=== PATIENT | male | born 1975 | race Caucasian/White ===

== ENCOUNTER 2019-11-20 02:34 | Emergency (ER) | payer MEDICAID ==
[~2019-11-20] VITALS: Ht 195.6 cm; Wt 117.9 kg
--- NOTE | 2019-11-20 02:55 | NUR ---
Patient ambulated to Room in steady gait. AO x 4. Complains of skin rashes on bilateral lower legs extending to ankles. Denies any pain or discomfort. Site noted with rashes that are scaly, surrounded by redness on the borders. Warm to touch. Not bleeding actively, no pus or foul smelling drainage noted. Respirations even and unlabored, not on any cardio-respiratory distress. No GI/ symptoms verbalized. VS stable. Safety precautions in place.
[2019-11-20 03:30] LABS: CREATININE 1.3 mg/dL (0.6-1.3); POTASSIUM 3.6 mmol/L (3.5-5.1)
[2019-11-20 03:56] VITALS: BP 139/94
== END 2019-11-20 03:55 | disposition home or self-care (01) ==
LOC: ER 02:38
DX: R21 Rash and other nonspecific skin eruption (principal); Z59.0 Homelessness; F17.200 Nicotine dependence, unspecified, uncomplicated; R03.0 Elevated blood-pressure reading, without diagnosis of hypertension
CPT/HCPCS: 36415; A4663

== ENCOUNTER 2021-01-06 23:11 | Emergency (ER) | payer MEDICAID, OTHER ==
[~2021-01-06] VITALS: Ht 195.6 cm; Wt 122.5 kg
[2021-01-07] MEDS ORDERED: KETOROLAC TROMETHAMINE 60 MG INJ IM ONE (01:06)
[2021-01-07] MEDS ORDERED: methylPREDNISolone SOD SUCC 125 MG/2 ML VIAL ONE (01:06)
[2021-01-07] MEDS: KETOROLAC TROMETHAMINE 60 MG INJ IM ONE (01:10)
[2021-01-07] MEDS: methylPREDNISolone SOD SUCC 125 MG/2 ML VIAL IV ONE (01:10)
[2021-01-07] MEDS ORDERED: CYCL10TA9 PO (02:03)
[2021-01-07] MEDS ORDERED: NAPR-1164 PO (02:03)
[2021-01-07 02:16] VITALS: BP 138/90
== END 2021-01-07 02:17 | disposition home or self-care (01) ==
LOC: ER 23:14
DX: M54.42 Lumbago with sciatica, left side (principal); Z59.0 Homelessness; F17.200 Nicotine dependence, unspecified, uncomplicated; Z88.0 Allergy status to penicillin; Z91.041 Radiographic dye allergy status; Z90.49 Acquired absence of other specified parts of digestive tract
CPT/HCPCS: 96372; 96374; 99284; J1885; J2930; A4663

== ENCOUNTER 2021-03-20 02:08 | Emergency (ER) | payer OTHER ==
[~2021-03-20] VITALS: Ht 193 cm; Wt 122.5 kg
[~2021-03-20 02:08] MED LIST: CYCL10TA9 PO; NAPR-1164 PO
--- NOTE | 2021-03-20 02:22 | NUR ---
Pt ambulated to ER with c/o right hand laceration 30 mins [employer]. A/O x4, no SOB or labored breathing, afebrile. Denies pain. Pt able to move right arm and all fingers on right hand.
--- NOTE | 2021-03-20 02:25 | NUR ---
Nilo Bueno at bedside, MSE in progress.
[2021-03-20] MEDS ORDERED: TDAP DIPH,PERTUSS,TET VAC/PF 0.5 ML DISP.SYRIN IM ONE ×2 (02:46→03:00)
--- NOTE | 2021-03-20 02:50 | NUR ---
Dr. Moselye at bedside providing stitches on right index finger.
[2021-03-20] MEDS ORDERED: CEPH500T PO (02:59)
[2021-03-20] MEDS ORDERED: CEphaleXIN 500 MG CAPSULE PO ONE (03:00)
--- NOTE | 2021-03-20 03:08 | NUR ---
Patient given written and verbal discharge instructions. A/O X4, denies any pain discomfort. Patient verbalizes understanding of instructions. Refuses offer of group home placement. Patient given list of available shelters in surrounding area. Right hand wound covered in clean dry dressing. Patient is ambulatory with steady gait.
[2021-03-20] MEDS ORDERED: CEphaleXIN 500 MG CAPSULE ONE (03:09)
[2021-03-20 03:12] VITALS: BP 136/82
== END 2021-03-20 03:08 | disposition home or self-care (01) ==
LOC: ER 02:17
DX: S61.210A Laceration without foreign body of right index finger without damage to nail, initial encounter (principal); W26.8XXA Contact with other sharp object(s), not elsewhere classified, initial encounter; Y92.89 Other specified places as the place of occurrence of the external cause; F17.210 Nicotine dependence, cigarettes, uncomplicated; Z59.0 Homelessness; R03.0 Elevated blood-pressure reading, without diagnosis of hypertension
CPT/HCPCS: 12001; 90471; 90715; 99283; J3490; A4217; A4663